=== PATIENT | female | born 1985 | race Caucasian/White ===

== ENCOUNTER 2020-04-06 07:29 | Inpatient (IN) ==
[2020-04-06] MEDS ORDERED: OXYTOCIN 30 UNITS/500 ML BAG IV PRN ×4 (08:31→18:53)
[2020-04-06] MEDS: LACTATED RINGER'S 1,000 ML IV PRN ×3 (08:37→16:47)
--- NOTE | 2020-04-06 08:46 | History & Physical Report ---
Date of Service April 06, 2020 Assessment & Plan (1) Post term at 41 weeks gestation: (2) Encounter for induction of labor: admit, iv, labs, start pitocin, will consider at reexam if any membrane to arom. unclear membrane status. gbs neg. categ 1 fetus. Admission and Anticipated Discharge Date Admission Date: April 06, 2020 History of Present Illness Chief Complaint: planned induction, postdates. Primary Care Provider: NO PCP 34yo at 41 1/7wks ega presents to L&D with above cc. Has had intermittent ctx, more intense in past 2days. Did note a trickle at 2pm yesterday and then alot of mucus but cannot say for sure had leaking. +FM. No vb. pnc uncomplicated pnl rh pos, rubella immune, gbs negative obh: G1 gynh: no stds, normal pap smears All Active Problems Post term at 41 weeks gestation Supervision of normal intrauterine in primigravida Allergies Allergy/AdvReac Type Severity Reaction Status Date / Time bacitracin Allergy hives Verified 04/06/20 07:42 [From Neosporin ([id number])] clindamycin Allergy hives Verified 04/06/20 07:42 neomycin Allergy hives Verified 04/06/20 07:42 [From Neosporin ([id number])] polymyxin B Allergy hives Verified 04/06/20 07:42 [From Neosporin ([id number])] Penicillins AdvReac Unknown Verified 04/06/20 07:42 Home Medications Home Medications Medication Instructions Recorded Confirmed Type PNV cmb#95-ferrous fumarate-FA 1 tab PO DAILY 04/06/20 04/06/20 History [] Patient History Social History Smoking Status: Never smoker Second Hand Exposure: No; Hx Alcohol Use: No Hx Substance Use: No Preferred Language: [place] Communication Ability: Effective Motion Picture Camera Lens Technician Required: No Beliefs That Will Affect Care: None marital status: marital status details: Johny Kidd (34) [phone] Current Living Situation: Spouse Current Living Situation Comment: lives with, 2 cats, Spouse changes litter current occupational status: unemployed Other Information That Helps Us Care for You: No Feels Safe at Home: Yes Safety Concerns: Feels Safe At This Time Review of Systems as per Subjective / HPI Physical Exam Constitutional: WD/WN, vitals as above Respiratory: normal respiratory effort, lungs clear to auscultation Cardiovascular: Rate/Rhythm: regular rate and regular rhythm Gastrointestinal (Abdomen): soft gravid nt efw 7# 13oz Musculoskeletal: no edema nontender calves Neurologic: grossly normal Psychiatric: A+Ox3, euthymic affect Genitourinary: OB Exam Abdomen: + vertex (by u/s) and + estimated weight (7# 13oz) Manual OB Exam: + cervical dilation (5), + cervical effacement 100%, + station 0 and + amniotic fluid (? rom, no membrane palpated) OB Exam Monitor Tracing: + external FHT monitor used (140 mod variability, reactive, ), + external uterine monitor used (q3-6), + category I and + normal FHT variability Results & Data ([facility]) Vital Signs (Past 12 Hours) Vital Signs Temp Pulse Resp BP 04/06/20 07:49 99.0 F 20 04/06/20 07:37 77 126/81 Code Status & VTE Plan VTE Prophylaxis Plan VTE Prophylaxis will be ordered: No Coding Level of Care Code None Diagnoses Post term at 41 weeks gestation O48.0; Z3A.41 Encounter for induction of labor Z34.90
[2020-04-06] MEDS ORDERED: BUPIVACAINE 0.25% 30 ML VIAL ONE (08:55)
[2020-04-06] MEDS ORDERED: fentaNYL citrate 100 MCG/2 ML VIAL ONE (08:55)
[2020-04-06] MEDS ORDERED: ePHEDrine sulfate 50 MG/ML AMP ONE (08:55)
[2020-04-06] MEDS ORDERED: fentaNYL 2MCG/ML ROPIV 1.25MG/ML 100 ML BAG EPI ONE (08:56)
[2020-04-06 09:02] LABS: Hematocrit (blood only) 41.6 % (37-47); Hemoglobin 14.1 g/dL (12.0-16.0); Mean Corpuscular Hemoglobin 30.9 pg (25-34); Mean Platelet Volume 11.5 fL (7.4-10.4); Platelet Count 239 K/uL (130-400); RDW Coefficient of Variation 13.3 % (11.5-14.5); RDW Standard Deviation 43.8 fL (36.4-46.3); Red Blood Count 4.57 M/uL (4.2-5.4); White Blood Count 13.53 K/uL (4.8-10.8)
[2020-04-06 09:03] LABS: Mean Corpuscular Hgb Conc 33.9 g/dL (32-36)
[2020-04-06] MEDS ORDERED: fentaNYL 2MCG/ML ROPIV 1.25MG/ML 100 ML BAG EPI PRN (09:11)
[2020-04-06] MEDS ORDERED: NALOXONE HCL 0.4 MG/1 ML VIAL/CARP IV PRN (09:11)
[2020-04-06] MEDS ORDERED: NALOXONE HCL 1 MG in SODIUM CHLORIDE 0.9% 1000ML 1,000 ML IV PRN (09:11)
[2020-04-06] MEDS ORDERED: ONDANSETRON INJ 2 MG/ML 2 ML VIAL IV PRN (09:11)
[2020-04-06] MEDS ORDERED: ePHEDrine sulfate 50 MG/ML AMP IV PRN (09:11)
[2020-04-06] MEDS ORDERED: DiphenhydrAMINE HCL 50 MG/ML VIAL IV PRN (09:11)
--- NOTE | 2020-04-06 09:12 | Anesthesiology Consultation ---
Date of Service April 06, 2020 Assessment & Plan ASA ASA2 Proposed Anesthesia Anesthesia Type: Labor Epidural Risk / Benefits Reviewed With: PT / POA / Parent / Guardian, Accepts Plan and Informed Consent Obtained History Height/Weight Height: 5 ft 3 in Weight: 91.172 kg Allergies Allergy/AdvReac Type Severity Reaction Status Date / Time bacitracin Allergy hives Verified 04/06/20 07:42 [From Neosporin ([id number])] clindamycin Allergy hives Verified 04/06/20 07:42 neomycin Allergy hives Verified 04/06/20 07:42 [From Neosporin ([id number]-imi-xihee)] polymyxin B Allergy hives Verified 04/06/20 07:42 [From Neosporin ([id number]-lth-[id number])] Penicillins AdvReac Unknown Verified 04/06/20 07:42 Medications Home Medications Medication Instructions Recorded Confirmed Last Taken PNV cmb#95-ferrous fumarate-FA 1 tab PO DAILY 04/06/20 04/06/20 04/05/20 21:00 [] Active Medications Generic Name Dose Route Start Last Admin Trade Name Freq PRN Reason Stop Dose Admin Lactated Ringer's 1,000 mls @ 125 mls/hr 04/06/20 08:31 04/06/20 09:39 Lr IV 04/08/20 08:30 125 mls/hr .Q8H PRN Administration L&D Protocol Protocol Oxytocin 30 units in 500 mls @ 9 mls/hr 04/06/20 08:31 04/06/20 11:35 Pitocin IV 04/08/20 08:30 0.54 units/hr .Q24H PRN 9 mls/hr Labor Induction/Augmentation Titration Protocol 0.54 UNITS/HR Past Medical History Medical History Abnormal biochemical finding on screening of mother Encounter for anatomic survey Hx of migraines Hx of varicella Exercise / Class Metabolic Activity II 4-5 Yardwork/Stairs/Walk up hill Past Family History Family History Mother Diabetes Grandfather (Paternal) Diabetes Grandmother (Maternal) Atrophic kidney Aunt Atrophic kidney Other Depression Past Surgical History Surgical History [place] teeth removed Past Anesthesia History No Hx of Anesthesia Complications and No Family Hx of Anesthesia Complications History of PONV No Hx of PONV and No Hx of Motion Sickness Social History Smoking Status: Never smoker Hx Alcohol Use: No Hx Substance Use: No Review of Systems denies fever/cough/ colds/ chest pain/ SOB/ MADYSON Constitutional: no fever and no chills Respiratory: no cough and no dyspnea denies MADYSON Cardiovascular: no chest pain and no dyspnea on exertion Physical Exam Vital Signs Last Vital Signs Temp 36.5 C 04/06/20 11:07 Pulse 75 04/06/20 11:45 Resp 16 04/06/20 11:07 BP 129/84 04/06/20 11:42 Pulse Ox 94 04/06/20 11:45 ENMT Mouth: no TMJ abnormality and no dentition abnormality Thyromental Distance: > or= 3.5 Finger Breadths Mallampati Class: II Neck neck extension not limited Respiratory normal respiratory effort; no respiratory distress Auscultation: lungs clear to auscultation bilaterally Cardiovascular Rate/Rhythm: regular rate and regular rhythm Neurologic moves all extremities Psychiatric Orientation: alert and oriented x 3 Testing Laboratory Results 04/06/20 08:44
[2020-04-06] MEDS ORDERED: SUPERCREAM 0.870% 15 GM JAR EXT PRN (18:30)
[2020-04-06] MEDS ORDERED: IBUPROFEN 600 MG TAB PO PRN (18:30)
[2020-04-06] MEDS ORDERED: ACETAMINOPHEN 325 MG TAB PO PRN (18:30)
[2020-04-06] MEDS ORDERED: DIPHTHERIA/TETANUS/PERTUSSIS 0.5 ML SYR/VIAL IM ONE (18:30)
[2020-04-06] MEDS ORDERED: BENZOCAINE 20% AER SPR 82.5 GM CAN EXT PRN (18:30)
[2020-04-06] MEDS ORDERED: HYDROCORTISONE ACETATE 25 MG SUPP PR PRN (18:30)
[2020-04-06] MEDS ORDERED: OXYCODONE/ACETAMINOPHEN 5mg/325mg TAB PO PRN (18:30)
--- NOTE | 2020-04-06 20:57 | Anesthesiology Progress Note ---
Date of Service April 06, 2020 Anesthesia Post Procedure Vital Signs Vital Signs: Temp Pulse Resp BP Pulse Ox 04/06/20 20:56 83 132/85 04/06/20 20:41 88 131/68 04/06/20 20:26 83 158/85 H 04/06/20 20:17 86 143/84 H 04/06/20 20:11 101 H 135/93 04/06/20 19:56 91 H 96 04/06/20 19:51 96 H 97 04/06/20 19:46 93 H 96 04/06/20 19:43 86 142/89 H 04/06/20 19:41 97 H 98 04/06/20 19:39 107 H 77 L 04/06/20 19:36 91 H 98 04/06/20 19:31 88 94 04/06/20 19:27 86 135/77 04/06/20 19:26 88 97 04/06/20 19:21 83 96 04/06/20 19:16 89 96 04/06/20 19:11 87 152/86 H 97 04/06/20 19:06 88 96 04/06/20 19:01 95 H 98 04/06/20 18:56 36.7 C 89 18 154/82 H 98 04/06/20 18:50 97 H 97 04/06/20 18:45 93 H 92 04/06/20 18:41 88 155/90 H 04/06/20 18:40 91 H 93 04/06/20 18:35 87 88 L 04/06/20 18:30 105 H 97 04/06/20 18:27 91 H 130/93 04/06/20 18:25 88 97 04/06/20 18:20 86 99 04/06/20 18:15 82 98 04/06/20 18:11 82 161/74 H 04/06/20 18:10 82 96 04/06/20 18:05 85 94 04/06/20 18:00 82 92 04/06/20 17:57 93 H 163/79 H 04/06/20 17:56 80 131/84 04/06/20 17:55 74 94 04/06/20 17:50 89 88 L 04/06/20 17:45 90 96 04/06/20 17:41 92 H 136/80 04/06/20 17:40 83 97 04/06/20 17:35 92 H 94 04/06/20 17:30 95 H 97 04/06/20 17:26 85 143/71 H 04/06/20 17:25 89 96 04/06/20 17:24 103 H 76 L 04/06/20 17:20 89 100 04/06/20 17:15 80 99 04/06/20 17:11 83 142/69 H 04/06/20 17:10 95 H 95 04/06/20 17:05 84 99 04/06/20 17:04 88 78 L 04/06/20 17:03 36.6 C 04/06/20 17:00 86 96 04/06/20 16:58 101 H 81 L 04/06/20 16:57 96 H 140/90 04/06/20 16:55 91 H 100 04/06/20 16:52 90 83 L 04/06/20 16:50 88 94 04/06/20 16:46 85 86 L 04/06/20 16:45 85 97 04/06/20 16:42 121 H 155/92 H 04/06/20 16:40 87 96 04/06/20 16:39 105 H 86 L 04/06/20 16:35 88 93 04/06/20 16:31 91 H 86 L 04/06/20 16:30 84 92 04/06/20 16:26 92 H 155/96 H 04/06/20 16:25 95 H 96 04/06/20 16:20 85 95 04/06/20 16:15 88 96 04/06/20 16:13 83 155/95 H 04/06/20 16:10 85 95 04/06/20 16:05 88 96 04/06/20 16:00 82 95 04/06/20 15:57 78 158/95 H 04/06/20 15:55 83 91 04/06/20 15:50 83 94 04/06/20 15:48 91 H 88 L 04/06/20 15:45 84 94 04/06/20 15:41 88 144/88 H 04/06/20 15:40 96 H 96 04/06/20 15:35 93 H 93 04/06/20 15:34 83 85 L 04/06/20 15:30 74 99 04/06/20 15:26 76 148/88 H 04/06/20 15:25 82 100 04/06/20 15:20 92 H 97 04/06/20 15:15 86 100 04/06/20 15:11 82 161/104 H 04/06/20 15:10 85 100 04/06/20 15:05 85 94 04/06/20 15:00 79 100 04/06/20 14:58 77 154/91 H 04/06/20 14:55 83 99 04/06/20 14:53 36.8 C 22 04/06/20 14:50 79 100 04/06/20 14:45 82 100 04/06/20 14:41 81 142/93 H 04/06/20 14:40 86 100 04/06/20 14:35 78 100 04/06/20 14:30 67 99 04/06/20 14:26 70 136/90 04/06/20 14:25 68 98 04/06/20 14:20 75 96 04/06/20 14:15 73 97 04/06/20 14:12 73 131/85 04/06/20 14:10 75 96 04/06/20 14:05 84 93 04/06/20 14:00 82 96 04/06/20 13:57 82 133/88 04/06/20 13:55 78 97 04/06/20 13:50 74 94 04/06/20 13:48 73 87 L 04/06/20 13:45 65 97 04/06/20 13:41 75 138/82 04/06/20 13:40 73 98 04/06/20 13:35 77 97 04/06/20 13:30 72 96 04/06/20 13:26 77 122/78 04/06/20 13:25 79 96 04/06/20 13:20 75 97 04/06/20 13:16 18 04/06/20 13:15 72 95 04/06/20 13:11 72 119/84 04/06/20 13:10 74 98 04/06/20 13:05 79 97 04/06/20 13:00 79 96 04/06/20 12:56 88 122/85 04/06/20 12:55 87 95 04/06/20 12:52 36.9 C 04/06/20 12:50 80 91 04/06/20 12:45 83 96 04/06/20 12:42 70 121/78 04/06/20 12:40 66 94 04/06/20 12:35 71 96 04/06/20 12:30 68 94 04/06/20 12:26 72 118/65 04/06/20 12:25 72 95 04/06/20 12:20 70 94 04/06/20 12:15 71 94 04/06/20 12:12 68 109/65 04/06/20 12:10 72 96 04/06/20 12:05 68 94 04/06/20 12:00 70 95 04/06/20 11:56 68 110/67 04/06/20 11:55 72 96 04/06/20 11:50 67 95 04/06/20 11:45 75 94 04/06/20 11:42 80 129/84 04/06/20 11:40 85 94 04/06/20 11:35 81 93 04/06/20 11:30 92 H 92 04/06/20 11:27 89 129/75 04/06/20 11:25 84 93 04/06/20 11:20 82 92 04/06/20 11:15 84 90 04/06/20 11:11 82 127/79 04/06/20 11:10 82 98 04/06/20 11:07 36.5 C 16 04/06/20 11:05 84 97 04/06/20 11:00 99 H 96 04/06/20 10:56 96 H 119/78 04/06/20 10:55 96 H 96 04/06/20 10:50 80 95 04/06/20 10:45 80 94 04/06/20 10:40 78 123/81 94 04/06/20 10:36 92 H 94 04/06/20 10:35 88 96 04/06/20 10:31 83 94 04/06/20 10:30 80 138/81 95 04/06/20 10:25 86 134/72 96 04/06/20 10:20 83 122/80 97 04/06/20 10:16 77 124/79 04/06/20 10:15 72 97 04/06/20 10:10 76 127/78 97 04/06/20 10:05 82 98 04/06/20 10:04 85 125/79 04/06/20 10:01 75 119/77 04/06/20 10:00 83 98 04/06/20 09:56 78 130/81 04/06/20 09:55 82 127/78 96 04/06/20 09:50 100 H 96 04/06/20 09:48 81 126/75 04/06/20 09:46 81 125/76 04/06/20 09:45 87 97 04/06/20 09:44 82 130/79 04/06/20 09:42 86 122/75 04/06/20 09:40 91 H 131/78 98 04/06/20 09:38 83 126/67 04/06/20 09:36 80 139/90 04/06/20 09:35 73 96 04/06/20 09:34 75 131/87 04/06/20 09:30 74 98 04/06/20 09:25 84 91 04/06/20 07:49 37.2 C 20 04/06/20 07:37 77 126/81 Pain Intensity Abdomen: Pain Intensity: 7 Transfer of Care Handoff Completed per policy Notes Mental Status: alert / awake / arousable and participated in evaluation Patient Amnestic to Procedure: Yes Nausea / Vomiting: adequately controlled Pain: adequately controlled Airway Patency, RR, SpO2: stable & adequate BP & HR: stable & adequate Hydration State: stable & adequate Anesthetic Complications: no major complications apparent and Pt Satisfied with anesthetic care
--- NOTE | 2020-04-06 21:40 | Delivery Summary ---
Vaginal Delivery Summary Date of Service April 06, 2020 The patient is a 34-year-old 1 P0 white female who presents at 41 weeks for induction of labor because of "postterm . Upon arrival in labor and delivery her cervix was 5 cm dilated 100% effaced. Pitocin augmentation of her labor was begun as her contraction pattern was irregular. She received effective epidural analgesia. Membranes were ruptured for a very small amount of fluid. She progressed to full dilation and began to push. After 3-1/2 hours of effective pushing the head was at +3 station. Because of maternal exhaustion a vacuum was applied at the introitus. Through 2 contractions and no pop offs, the 's head was delivered easily. There was significant molding noted. The rest of the infant delivered easily and was placed on the mother's abdomen for further attention and drying. There was poor respiratory effort at this point and the was placed on the baby bed for further resuscitation. After further drying and stimulation there was spontaneous crying and the infant was moving all 4 limbs. The cord had been clamped and cut quickly after delivery. The placenta was expressed intact with a three-vessel cord. The perineum was intact postdelivery. Estimated blood loss was 200 cc. bleeding was controlled with dilute Pitocin. Mother and infant were doing well after delivery. [facility] [place] Vaginal Delivery Charge Vaginal Delivery Codes: 18586 global code for the antepartum, delivery, and post-
[2020-04-06] MEDS: DOCUSATE SODIUM 100 MG CAP PO SCH (23:31)
[2020-04-07 06:48] LABS: Hematocrit (blood only) 37.5 % (37-47); Hemoglobin 12.6 g/dL (12.0-16.0); Mean Corpuscular Hemoglobin 30.7 pg (25-34); Mean Corpuscular Hgb Conc 33.6 g/dL (32-36); Mean Corpuscular Volume 91.2 fL (80-100); Mean Platelet Volume 11.9 fL (7.4-10.4); Platelet Count 209 K/uL (130-400); RDW Coefficient of Variation 13.2 % (11.5-14.5); RDW Standard Deviation 43.9 fL (36.4-46.3); Red Blood Count 4.11 M/uL (4.2-5.4); White Blood Count 18.03 K/uL (4.8-10.8)
--- NOTE | 2020-04-07 06:59 | Obstetrical Progress Note ---
Date of Service <Shraddha Rosas DO - Last Filed: 04/07/20 08:16> April 07, 2020 Assessment & Plan <Shraddha Rosas DO - Last Filed: 04/07/20 08:16> (1) Vacuum-assisted vaginal delivery: Eating well, voiding well, ambulating well. Pain controlled with Ibuprofen 600mg q4h prn. Routine vaginal delivery care -- OOB, ambulation, diet progression as tolerated. After discharge, will have 6 week f/u with Dr. Cleary. Pt requesting d/c home tonight. Subjective <Shraddha Rosas DO - Last Filed: 04/07/20 08:16> Alyse Chapman is a 34 y/o female who is PPD #1 following IOL w/ VAVD delivery at 41w1d. She reports feeling well overall this morning. Some abdominal cramping & left hip pain, especially with moving/rotating body; pain well managed on analgesics. Voiding with some dysuria; pt clarifies that the dysuria is more of an external senation. Tolerating meals overnight and able to ambulate some. + passing gas but no bowel movement. Has persistent lochia, bright red, with some improvement this morning. Currently breast feeding. Review of Systems Denies fever or chills. Denies shortness of breath Denies chest pain. Reports some breast pain with nursing. + dysuria (clarifies this is more of an external sensation). Denies leg pain or leg swelling. Physical Exam <Shraddha Rosas DO - Last Filed: 04/07/20 08:16> General: Alert, oriented. No acute distress. Cardiac: Regular rate and rhythm. No murmurs. Respiratory: Clear to auscultation bilaterally a/p, no wheezes/rales/rhonchi. No increased work of breathing. Symmetrical chest rise. No respiratory distress. Abdomen: Soft, nontender, nondistended. Bowel sounds present but hypoactive. Uterus: Uterine fundus firm, palpable 1 cm above umbilicus. Lower Extremities: No lower extremity edema or swelling. No deep calf pain. Lynda's negative bilaterally. Results & Data <Shraddha Rosas DO - Last Filed: 04/07/20 08:16> Vital Signs (Past 12 Hours) Vital Signs Temp Pulse Pulse Resp BP BP Pulse Ox 04/07/20 04:00 36.7 C 87 18 133/90 04/06/20 22:45 37.4 C 18 144/98 H 04/06/20 22:38 122 H 144/98 H 04/06/20 22:30 37.4 C 18 04/06/20 22:15 18 04/06/20 22:11 90 129/84 04/06/20 22:00 100 H 130/82 04/06/20 21:45 18 04/06/20 21:41 81 145/80 H 04/06/20 21:26 97 H 155/84 H 04/06/20 21:15 18 04/06/20 21:11 87 154/78 H 04/06/20 21:00 18 04/06/20 20:56 83 132/85 04/06/20 20:45 18 04/06/20 20:41 88 131/68 04/06/20 20:30 18 04/06/20 20:26 83 158/85 H 04/06/20 20:17 86 143/84 H 04/06/20 20:15 36.7 C 18 04/06/20 20:11 101 H 135/93 04/06/20 19:56 91 H 96 04/06/20 19:51 96 H 97 04/06/20 19:46 93 H 96 04/06/20 19:43 86 142/89 H 04/06/20 19:41 97 H 98 04/06/20 19:39 107 H 77 L 04/06/20 19:36 91 H 98 04/06/20 19:31 88 94 04/06/20 19:27 86 135/77 04/06/20 19:26 88 97 04/06/20 19:21 83 96 04/06/20 19:16 89 96 04/06/20 19:11 87 152/86 H 97 04/06/20 19:06 88 96 04/06/20 19:01 95 H 98 04/06/20 18:56 36.7 C 89 18 154/82 H 98 Laboratory Results H&H this morning 12.6 and 37.5% <Gilma Aaron MD, FACOG - Last Filed: 04/07/20 08:17> Co-Signing Physician Notes Resident Physician Supervision Note: I interviewed and examined the patient. Discussed with and agree with findings and plan as documented in the note. Any exceptions or clarifications are listed here: [None] Documented By: Gilma Aaron MD, FACOG
[2020-04-07] MEDS: PRENATAL VITAMIN 1 TAB PO SCH (08:37)
[2020-04-07] MEDS: DOCUSATE SODIUM 100 MG CAP PO SCH ×2 (08:37→20:27)
[2020-04-07] MEDS ORDERED: bisacodyL 5 MG TABEC PO SCH (20:00)
[2020-04-08] MEDS ORDERED: bisacodyL 10 MG SUPP PR PRN (06:00)
--- NOTE | 2020-04-08 06:39 | Obstetrical Progress Note ---
Date of Service <Shraddha Rosas DO - Last Filed: 04/08/20 07:38> April 08, 2020 Assessment & Plan <Shraddha Jony Rosas DO - Last Filed: 04/08/20 07:38> (1) Vacuum-assisted vaginal delivery: Eating well, voiding well, ambulating well. Continue pain control with Ibuprofen 600mg q4h prn. Routine vaginal delivery care -- OOB, ambulation, diet progression as tolerated. After discharge, will have 6 week f/u with Dr. Cleary. Will plan for d/c home today. Subjective <Shraddha Rosas DO - Last Filed: 04/08/20 07:38> Alyse Chapman is a 34 y/o female who is PPD #2 following IOL with VAVD and epidural at 41 1/7 weeks. She reports "feeling great" this morning. No abdominal cramping & 0/10 pain. Voiding without difficulty. Tolerating meals w/o nausea or vomiting. Has been able to ambulate some. + passing gas and no bowel movement. Has some persistent lochia with some improvement this morning; discharge is some "bright red blood" with very little clots. Currently breast feeding. Review of Systems Denies fever, chills, sweats Denies shortness of breath. Denies chest pain. Denies breast pain. + dysuria (external sensation) that is being well controlled with Dermaplast and Witch Ashlie pads. Denies leg pain or leg swelling. Denies headache or changes in vision. Physical Exam <Shraddha Rosas DO - Last Filed: 04/08/20 07:38> General: Alert, oriented. No acute distress. Cardiac: Regular rate and rhythm. No murmurs. Respiratory: Clear to auscultation bilaterally a/p, no wheezes/rales/rhonchi. No increased work of breathing. Symmetrical chest rise. No respiratory distress. Abdomen: Soft, nontender, nondistended. Bowel sounds present. Uterus: Uterine fundus firm, palpable 2cm above umbilicus. Lower Extremities: No lower extremity edema or swelling. No deep calf pain. Lynda's negative bilaterally. Results & Data ([facility]) <Shraddha Rosas DO - Last Filed: 04/08/20 07:38> Vital Signs (Past 12 Hours) Vital Signs Temp Pulse Resp BP Pulse Ox 04/07/20 23:25 36.4 C L 64 18 133/89 97 04/07/20 19:40 36.4 C L 80 20 131/85 97 Laboratory Results h/h 11.6/34.8% this morning at 0620 <Namrata Wilkinson DO - Last Filed: 04/08/20 07:51> Co-Signing Physician Notes Resident Physician Supervision Note: I was present with Dr. Rosas during the history and exam. I discussed the case with the resident and agree with the findings and plan as documented in the note. Any exceptions or clarifications are listed here: PPD#2 doing well. DC instructions reviewed. Documented By: Namrata Wilkinson DO
[2020-04-08 07:15] LABS: Hematocrit (blood only) 34.8 % (37-47); Hemoglobin 11.6 g/dL (12.0-16.0)
[2020-04-08] MEDS: DOCUSATE SODIUM 100 MG CAP PO SCH (08:29)
[2020-04-08] MEDS: PRENATAL VITAMIN 1 TAB PO SCH (08:29)
== END 2020-04-08 13:05 | disposition home or self-care (01) | DRG 807 ==
LOC: 4S1 07:29 → 4S2 23:13